=== PATIENT | female | born 1970 | race Caucasian/White ===

== ENCOUNTER 2018-02-26 14:22 | Emergency (ER) | payer MEDICARE, MEDICAID ==
[~2018-02-26] VITALS: Ht 165.1 cm; Wt 65.9 kg
[~2018-02-26 14:22] MED LIST: ACET325T55 PO; ACET650T2 PO; BUSP10TA11 PO; CARB15DR23 EACH EAR; CARB200T PO; DOCU100C40 PO; DULR RC; GAS X PO; MAGN800O PO; MULT-1085 PO; NEOM1OIN8 TOP; PHEN64.8 PO; [UNRECOGNIZED DRUG - OTHER] TOP; [UNRECOGNIZED DRUG - OTHER] TP
[2018-02-26] MEDS ORDERED: epiNEPHrine 1 mg/ml inj SQ STA (14:44)
[2018-02-26] MEDS ORDERED: dexamethasone sod phosphate 10mg/ml inj IM STA (14:44)
[2018-02-26] MEDS ORDERED: diphenhydrAMINE 50 mg/ml inj IM ONE (14:45)
[2018-02-26] MEDS ORDERED: famotidine 20mg tablet PO ONE (14:45)
[2018-02-26] MEDS ORDERED: EPIN0.3P8 IM (15:06)
[2018-02-26 15:36] VITALS: BP 126/77
== END 2018-02-26 15:42 | disposition home or self-care (01) ==
LOC: ER 14:22
DX: T63.441A Toxic effect of venom of bees, accidental (unintentional), initial encounter (principal); T78.49XA Other allergy, initial encounter; R06.09 Other forms of dyspnea; Z88.8 Allergy status to other drugs, medicaments and biological substances; Z79.899 Other long term (current) drug therapy; Y92.9 Unspecified place or not applicable
CPT/HCPCS: 96372; 99284; J0171; J1100; J1200

== ENCOUNTER 2018-05-23 09:25 | Emergency (ER) | payer MEDICARE, MEDICAID ==
[~2018-05-23] VITALS: Ht 165.1 cm; Wt 63.0 kg
[~2018-05-23 09:25] MED LIST changes: +EPIN0.3P8 IM
[2018-05-23 09:43] VITALS: BP 116/79
[2018-05-23] MEDS ORDERED: normal saline 1000ML IV soln IV ONE (10:05)
[2018-05-23] MEDS ORDERED: CEPH-571 PO (11:41)
[2018-05-27] MEDS ORDERED: SULF1TAB49 PO (14:40)
== END 2018-05-23 11:57 | disposition home or self-care (01) ==
LOC: ER 09:25
DX: L02.415 Cutaneous abscess of right lower limb (principal); L03.115 Cellulitis of right lower limb; F88 Other disorders of psychological development; Z88.8 Allergy status to other drugs, medicaments and biological substances; Z79.899 Other long term (current) drug therapy
CPT/HCPCS: 99283; J7030

== ENCOUNTER 2018-06-07 08:59 | Day surgery (SDC) | payer MEDICARE, MEDICAID ==
[~2018-06-07 08:59] MED LIST changes: +CEPH-571 PO
== END 2018-06-07 10:51 | disposition home or self-care (01) ==
LOC: WOUND CARE 08:59
PROVIDERS: ATTEND Surgery
DX: L97.212 Non-pressure chronic ulcer of right calf with fat layer exposed (principal); Z79.899 Other long term (current) drug therapy; Z86.69 Personal history of other diseases of the nervous system and sense organs
CPT/HCPCS: 11042; A6222; A6021; A6212

== ENCOUNTER 2018-06-16 09:30 | Outpatient (CLI) | payer MEDICARE, MEDICAID | END 2018-06-16 11:23 | disposition home or self-care (01) | LOC: EDSTATUS 09:30 → WOUND CARE 09:30 | PROVIDERS: ATTEND Surgery | DX: L97.212 Non-pressure chronic ulcer of right calf with fat layer exposed (principal); Z79.899 Other long term (current) drug therapy; Z86.69 Personal history of other diseases of the nervous system and sense organs | CPT/HCPCS: A6021; A6206; A6212; G0463 ==

== ENCOUNTER 2018-06-23 09:51 | Day surgery (SDC) | payer MEDICARE, MEDICAID | END 2018-06-23 10:37 | disposition home or self-care (01) | LOC: WOUND CARE 09:51 | PROVIDERS: ATTEND Surgery | DX: L97.212 Non-pressure chronic ulcer of right calf with fat layer exposed (principal); Z79.899 Other long term (current) drug therapy; Z86.69 Personal history of other diseases of the nervous system and sense organs | CPT/HCPCS: 97597; A6021; A6196; A6206 ==

== ENCOUNTER 2018-06-30 09:19 | Day surgery (SDC) | payer MEDICARE, MEDICAID ==
--- NOTE | 2018-06-30 11:30 | NUR ---
Patient arrived via wheelchair accompanied by her caregiver from [facility] and was admitted to outpatient wound care for physician visit with Yuri Ibrahim MD. Dressing removed, wound cleansed and lidocaine applied per order. Patient assessed for changes in conditions, medications and medical history. 1040 - Dr. Ibrahim at bedside accompanied by RN. Wound assessed, time out performed by MD/RN. Wound debrided as detailed in the physician progress/procedure note. Plan of care discussed with patient. Dressings placed per MD orders. Patient instructed on the signs and symptoms of infection and to call the Wound Center if any occur or to go to the ED if we are closed: Increased pain in wound Increase in drainage from the wound Redness in the skin surrounding the wound Bleeding from the wound Temperature of 101 or greater Patient instructed that the weight of their body puts a large amount of pressure on their wounds. This pressure keeps the new tissue from growing and inhibits new blood vessels from forming. Explained that, if they continue to bear weight on a body part that has a wound, the time it takes to heal the wound increases, the wound may get worse or the wound may not heal at all. Patient's caregiver verbalized understanding of all discharge instructions and plan of care and patient exited via wheelchair accompanied by caregiver out to [facility] in stable condition with no sign or symptom of distress at time of discharge.
== END 2018-06-30 11:09 | disposition home or self-care (01) ==
LOC: WOUND CARE 09:19
PROVIDERS: ATTEND Surgery
DX: T81.89XD Other complications of procedures, not elsewhere classified, subsequent encounter (principal); L97.212 Non-pressure chronic ulcer of right calf with fat layer exposed; Z79.899 Other long term (current) drug therapy; Z86.69 Personal history of other diseases of the nervous system and sense organs; Y83.8 Other surgical procedures as the cause of abnormal reaction of the patient, or of later complication, without mention of misadventure at the time of the procedure
CPT/HCPCS: 97597; A6212

== ENCOUNTER 2018-07-12 09:05 | Day surgery (SDC) | payer MEDICARE, MEDICAID ==
[~2018-07-12 09:05] MED LIST changes: -CEPH-571 PO
[2018-07-12] MEDS ORDERED: LIDOcaine/PRILOcaine 5gm cream TP ONE (09:53)
--- NOTE | 2018-07-12 11:00 | NUR ---
Patient arrived via wheelchair accompanied by caregiver Luisa from [facility] and was admitted to outpatient wound care for physician visit with Yuri Ibrahim MD. Dressing removed, wound cleansed and Emla cream applied per order. Patient assessed for changes in conditions, medications and medical history. 1010 - Dr. Ibrahim at bedside accompanied by RN. Wound assessed, time out performed by MD/RN. Wound debrided as detailed in the physician progress/procedure note. Plan of care discussed with patient. Dressings placed per MD orders. Patient instructed on the signs and symptoms of infection and to call the Wound Center if any occur or to go to the ED if we are closed: Increased pain in wound Increase in drainage from the wound Redness in the skin surrounding the wound Bleeding from the wound Temperature of 101 or greater Patient instructed that the weight of their body puts a large amount of pressure on their wounds. This pressure keeps the new tissue from growing and inhibits new blood vessels from forming. Explained that, if they continue to bear weight on a body part that has a wound, the time it takes to heal the wound increases, the wound may get worse or the wound may not heal at all. Patient's caregiver verbalized understanding of all discharge instructions and plan of care and drove patient via wheelchair out to [facility] in stable condition with no sign or symptom of distress at time of discharge.
[2018-07-12] MEDS ORDERED: SULF1TAB48 PO (13:46)
== END 2018-07-12 10:29 | disposition home or self-care (01) ==
LOC: WOUND CARE 09:05
PROVIDERS: ATTEND Surgery
DX: L97.112 Non-pressure chronic ulcer of right thigh with fat layer exposed (principal); K21.9 Gastro-esophageal reflux disease without esophagitis; Z79.899 Other long term (current) drug therapy; Z86.69 Personal history of other diseases of the nervous system and sense organs
CPT/HCPCS: A6021; A6206; A6212

== ENCOUNTER 2018-08-01 08:55 | Day surgery (SDC) | payer MEDICARE, MEDICAID ==
[~2018-08-01 08:55] MED LIST changes: +SULF1TAB48 PO
[2018-08-01] MEDS ORDERED: LIDOcaine/PRILOcaine 5gm cream TP ONE (09:58)
--- NOTE | 2018-08-01 11:00 | NUR ---
Patient arrived via wheelchair accompanied by caregiver from [facility] and was admitted to outpatient wound care for physician visit with Yuri Ibrahim MD. Patient is combative with caregiver and refusing to get out of wheelchair for her caregiver; another caregiver is phoned and arrives and is able to calm the patient so that patient could be transferred to [facility] with assist for commencement of wound care. Dressing removed, wound cleansed and Emla cream applied per order. Patient assessed for changes in conditions, medications and medical history. 1025 - Dr. Ibrahim at bedside accompanied by RN. Wound assessed, time out performed by MD/RN. Wound debrided as detailed in the physician progress/procedure note. Plan of care discussed with patient. Dressings placed per MD orders. Patient instructed on the signs and symptoms of infection and to call the Wound Center if any occur or to go to the ED if we are closed: Increased pain in wound Increase in drainage from the wound Redness in the skin surrounding the wound Bleeding from the wound Temperature of 101 or greater Patient instructed that the weight of their body puts a large amount of pressure on their wounds. This pressure keeps the new tissue from growing and inhibits new blood vessels from forming. Explained that, if they continue to bear weight on a body part that has a wound, the time it takes to heal the wound increases, the wound may get worse or the wound may not heal at all. Patient's caregiver verbalized understanding of all discharge instructions and plan of care and drove patient via wheelchair out to [facility] in stable condition with no sign or symptom of distress at time of discharge.
== END 2018-08-01 10:38 | disposition home or self-care (01) ==
LOC: WOUND CARE 08:55
PROVIDERS: ATTEND Surgery
DX: L97.112 Non-pressure chronic ulcer of right thigh with fat layer exposed (principal); K21.9 Gastro-esophageal reflux disease without esophagitis; Z79.899 Other long term (current) drug therapy; Z86.69 Personal history of other diseases of the nervous system and sense organs
CPT/HCPCS: 97597; A6021; A6206; A6212

== ENCOUNTER 2018-08-09 09:00 | Day surgery (SDC) | payer MEDICARE, MEDICAID ==
--- NOTE | 2018-08-09 12:37 | NUR ---
Patient ambulated independently from [facility] and was admitted to outpatient wound care for physician visit. Dressings removed, wound cleansed. Patient assessment completed with review of patient's medical history and current medications. 1010-Dr. Ibrahim at bedside accompanied by RN. Wound assessed, time-out performed by MD/RN. Wound debrided as detailed in the physician progress/procedure note. Plan of care discussed with patient. Dressings placed per MD orders. Patient instructed on the signs and symptoms of infection and to call the Wound Center if any occur or to go to the ED if we are closed: Increased pain in the wound Increase in drainage from the wound Redness in the skin surrounding the wound Bleeding from the wound Temperature of 101F or greater Patient instructed that the weight of their body puts a large amount of pressure on their wounds. This pressure keeps the new tissue from growing and inhibits new blood vessels from forming. Explained that, if they continue to bear weight on a body part that has a wound, the time it takes to heal the wound increases, the wound may get worse, or the wound may not heal at all. Patient verbalized understanding of all discharge instructions and plan of care. Patient ambulated independently out to [facility] in stable condition with no signs or symptoms of distress at time of discharge.
== END 2018-08-09 10:22 | disposition home or self-care (01) ==
LOC: WOUND CARE 09:00
PROVIDERS: ATTEND Surgery
DX: L97.112 Non-pressure chronic ulcer of right thigh with fat layer exposed (principal); K21.9 Gastro-esophageal reflux disease without esophagitis; Z79.899 Other long term (current) drug therapy; Z86.69 Personal history of other diseases of the nervous system and sense organs
CPT/HCPCS: 97597; A6021; A6212

== ENCOUNTER 2018-08-24 09:36 | Day surgery (SDC) | payer MEDICARE, MEDICAID ==
[~2018-08-24 09:36] MED LIST changes: +BACDS PO; +CEPH500C5 PO
[2018-08-24] MEDS ORDERED: LIDOcaine/PRILOcaine 5gm cream TP ONE (10:29)
--- NOTE | 2018-08-24 11:00 | NUR ---
Patient arrived via wheelchair accompanied by caregiver Maida from [facility] and was admitted to outpatient wound care for physician visit with Yuri Ibrahim MD. Dressing removed, wound cleansed. Patient assessed for changes in conditions, medications and medical history. 1025 - Dr. Ibrahim at bedside accompanied by RN. Wound assessed, time out performed by MD/RN. Wound debrided as detailed in the physician progress/procedure note. Plan of care discussed with patient. Dressings placed per MD orders. Patient instructed on the signs and symptoms of infection and to call the Wound Center if any occur or to go to the ED if we are closed: Increased pain in wound Increase in drainage from the wound Redness in the skin surrounding the wound Bleeding from the wound Temperature of 101 or greater Patient instructed that the weight of their body puts a large amount of pressure on their wounds. This pressure keeps the new tissue from growing and inhibits new blood vessels from forming. Explained that, if they continue to bear weight on a body part that has a wound, the time it takes to heal the wound increases, the wound may get worse or the wound may not heal at all. Patient's caregiver Maida verbalized understanding of all discharge instructions and plan of care and patient is taken via wheelchair by Maida out to [facility] in stable condition with no sign or symptom of distress at time of discharge.
[2018-08-24] MEDS ORDERED: CEPH-572 PO (15:24)
== END 2018-08-24 11:00 | disposition home or self-care (01) ==
LOC: WOUND CARE 09:36
PROVIDERS: ATTEND Surgery
DX: L97.222 Non-pressure chronic ulcer of left calf with fat layer exposed (principal); K21.9 Gastro-esophageal reflux disease without esophagitis; G80.9 Cerebral palsy, unspecified; Z86.69 Personal history of other diseases of the nervous system and sense organs; Z79.899 Other long term (current) drug therapy
CPT/HCPCS: 97597; A6021; A6206; A6212

== ENCOUNTER 2018-08-31 09:16 | Day surgery (SDC) | payer MEDICARE, MEDICAID ==
[~2018-08-31 09:16] MED LIST changes: +CEPH-572 PO; -CEPH500C5 PO
[2018-08-31] MEDS ORDERED: LIDOcaine/PRILOcaine 5gm cream TP ONE (09:53)
--- NOTE | 2018-08-31 10:30 | NUR ---
Patient arrived via wheelchair accompanied by caregiver from [facility] and was admitted to outpatient wound care for physician visit with Yuri Ibrahim MD. Dressing removed, wound cleansed and Emla cream applied per order. Patient assessed for changes in conditions, medications and medical history. 1015 - Dr. Ibrahim at bedside accompanied by RN. Wound assessed, time out performed by MD/RN. Wound debrided as detailed in the physician progress/procedure note. Plan of care discussed with patient. Dressings placed per MD orders. Patient instructed on the signs and symptoms of infection and to call the Wound Center if any occur or to go to the ED if we are closed: Increased pain in wound Increase in drainage from the wound Redness in the skin surrounding the wound Bleeding from the wound Temperature of 101 or greater Patient instructed that the weight of their body puts a large amount of pressure on their wounds. This pressure keeps the new tissue from growing and inhibits new blood vessels from forming. Explained that, if they continue to bear weight on a body part that has a wound, the time it takes to heal the wound increases, the wound may get worse or the wound may not heal at all. Patient's caregivers verbalized understanding of all discharge instructions and plan of care and ambulated independently out to [facility] in stable condition with no sign or symptom of distress at time of discharge.
== END 2018-08-31 10:50 | disposition home or self-care (01) ==
LOC: WOUND CARE 09:16
PROVIDERS: ATTEND Surgery
DX: L97.222 Non-pressure chronic ulcer of left calf with fat layer exposed (principal); S71.101A Unspecified open wound, right thigh, initial encounter; K21.9 Gastro-esophageal reflux disease without esophagitis; G80.9 Cerebral palsy, unspecified; Z86.69 Personal history of other diseases of the nervous system and sense organs; Z79.899 Other long term (current) drug therapy; X58.XXXA Exposure to other specified factors, initial encounter; Y93.89 Activity, other specified; Y92.89 Other specified places as the place of occurrence of the external cause; Y99.8 Other external cause status
CPT/HCPCS: A6021; A6212

== ENCOUNTER 2018-09-04 10:39 | Day surgery (SDC) | payer MEDICARE, MEDICAID ==
[~2018-09-04 10:39] MED LIST changes: -BACDS PO; -CEPH-572 PO
[2018-09-04] MEDS ORDERED: LIDOcaine/PRILOcaine 5gm cream TP ONE (12:09)
--- NOTE | 2018-09-04 12:50 | NUR ---
Patient arrived via wheelchair accompanied by caregiver from [facility] and was admitted to outpatient wound care for physician visit with Yuri Ibrahim MD. Dressing removed, wound cleansed and Emla cream applied per order. Patient assessed for changes in conditions, medications and medical history. 1215 - Dr. Ibrahim at bedside accompanied by RN. Wound assessed, time out performed by MD/RN. Wound debrided as detailed in the physician progress/procedure note. Plan of care discussed with patient. Dressings placed per MD orders. Patient instructed on the signs and symptoms of infection and to call the Wound Center if any occur or to go to the ED if we are closed: Increased pain in wound Increase in drainage from the wound Redness in the skin surrounding the wound Bleeding from the wound Temperature of 101 or greater Patient instructed that the weight of their body puts a large amount of pressure on their wounds. This pressure keeps the new tissue from growing and inhibits new blood vessels from forming. Explained that, if they continue to bear weight on a body part that has a wound, the time it takes to heal the wound increases, the wound may get worse or the wound may not heal at all. Patient verbalized understanding of all discharge instructions and plan of care and exited via wheelchair accompanied by caregiver out to [facility] in stable condition with no sign or symptom of distress at time of discharge.
== END 2018-09-04 12:42 | disposition home or self-care (01) ==
LOC: WOUND CARE 10:39
PROVIDERS: ATTEND Surgery
DX: L97.222 Non-pressure chronic ulcer of left calf with fat layer exposed (principal); K21.9 Gastro-esophageal reflux disease without esophagitis; G80.9 Cerebral palsy, unspecified; Z86.69 Personal history of other diseases of the nervous system and sense organs; Z79.899 Other long term (current) drug therapy
CPT/HCPCS: A6021; A6206; A6212

== ENCOUNTER 2018-09-14 09:09 | Day surgery (SDC) | payer MEDICARE, MEDICAID ==
[~2018-09-14 09:09] MED LIST changes: -SULF1TAB48 PO
[2018-09-14] MEDS ORDERED: LIDOcaine/PRILOcaine 5gm cream TP ONE (10:13)
--- NOTE | 2018-09-14 13:59 | NUR ---
Patient arrived safely into [employer] wheelchair, accompanied by caregiver. Patient admitted to outpatient wound care for physician visit with Yuri Ibrahim MD. Dressing removed, wound cleansed and Emla cream applied per order. Patient assessed for changes in conditions, medications and medical history. Dr. Ibrahim at bedside accompanied by RN. Wound assessed, time out performed by MD/RN. Wound debrided as detailed in the physician progress/procedure note. Plan of care discussed with patient. Dressings placed per MD orders. Patient instructed on the signs and symptoms of infection and to call the Wound Center if any occur or to go to the ED if we are closed: Increased pain in wound Increase in drainage from the wound Redness in the skin surrounding the wound Bleeding from the wound Temperature of 101 or greater Patient instructed that the weight of their body puts a large amount of pressure on their wounds. This pressure keeps the new tissue from growing and inhibits new blood vessels from forming. Explained that, if they continue to bear weight on a body part that has a wound, the time it takes to heal the wound increases, the wound may get worse or the wound may not heal at all. Patient verbalized understanding of all discharge instructions and plan of care. Patient left in stable condition with no sign or symptom of distress at time of discharge. Addendum: 09/14/18 at 1407 by Katty Nolasco RN Amended: Links added.
== END 2018-09-14 10:55 | disposition home or self-care (01) ==
LOC: WOUND CARE 09:09
PROVIDERS: ATTEND Surgery
DX: L97.222 Non-pressure chronic ulcer of left calf with fat layer exposed (principal); K21.9 Gastro-esophageal reflux disease without esophagitis; G80.9 Cerebral palsy, unspecified; Z86.69 Personal history of other diseases of the nervous system and sense organs; Z79.899 Other long term (current) drug therapy
CPT/HCPCS: 97597; A6021; A6212; A6446

== ENCOUNTER 2018-09-21 09:35 | Day surgery (SDC) | payer MEDICARE, MEDICAID ==
[2018-09-21] MEDS ORDERED: LIDOcaine/PRILOcaine 5gm cream TP ONE (09:48)
--- NOTE | 2018-09-21 14:38 | NUR ---
Patient arrived via wheelchair accompanied by caregiver. Patient was admitted to outpatient wound care for physician visit with Yuri Ibrahim MD. Dressing removed, wound cleansed and lidocaine applied per order. Patient assessed for changes in conditions, medications and medical history. Dr. Ibrahim at bedside accompanied by RN. Wound assessed, time out performed by MD/RN. Wound debrided as detailed in the physician progress/procedure note. Plan of care discussed with medicare contact specialist. Dressings placed per MD orders. residential sales associate instructed on the signs and symptoms of infection and to call the Wound Center if any occur or to go to the ED if we are closed: Increased pain in wound Increase in drainage from the wound Redness in the skin surrounding the wound Bleeding from the wound Temperature of 101 or greater residential sales associate instructed that the weight of patients body puts a large amount of pressure on their wounds. This pressure keeps the new tissue from growing and inhibits new blood vessels from forming. Explained that, if they continue to bear weight on a body part that has a wound, the time it takes to heal the wound increases, the wound may get worse or the wound may not heal at all. residential sales associate verbalized understanding of all discharge instructions and plan of care. Patient left in stable condition with no sign or symptom of distress at time of discharge. Addendum: 09/21/18 at 1443 by Katty Nolasco RN Amended: Links added.
== END 2018-09-21 11:27 | disposition home or self-care (01) ==
LOC: WOUND CARE 09:35
PROVIDERS: ATTEND Surgery
DX: E11.622 Type 2 diabetes mellitus with other skin ulcer (principal); L97.222 Non-pressure chronic ulcer of left calf with fat layer exposed; E11.65 Type 2 diabetes mellitus with hyperglycemia; G82.50 Quadriplegia, unspecified; E78.5 Hyperlipidemia, unspecified; E78.00 Pure hypercholesterolemia, unspecified; K21.9 Gastro-esophageal reflux disease without esophagitis; F17.200 Nicotine dependence, unspecified, uncomplicated; F41.9 Anxiety disorder, unspecified; Z79.01 Long term (current) use of anticoagulants; Z86.718 Personal history of other venous thrombosis and embolism; Z90.710 Acquired absence of both cervix and uterus; Z90.49 Acquired absence of other specified parts of digestive tract; Z79.2 Long term (current) use of antibiotics; Z79.899 Other long term (current) drug therapy
CPT/HCPCS: 97597; A6021; A6212

== ENCOUNTER 2018-09-28 09:13 | Day surgery (SDC) | payer MEDICARE, MEDICAID ==
--- NOTE | 2018-09-28 11:15 | NUR ---
Patient arrived via wheelchair accompanied by caregiver Maida from [facility] and was admitted to outpatient wound care for physician visit with Yuri Ibrahim MD. Dressing removed, wound cleansed. Patient assessed for changes in conditions, medications and medical history. 1050 - Dr. Ibrahim at bedside accompanied by RN. Wound assessed, time out performed by MD/RN. Wound debrided as detailed in the physician progress/procedure note. Plan of care discussed with patient. Dressings placed per MD orders. Patient is discharged from the wound clinic to follow up on an as needed basis. Patient instructed on the signs and symptoms of infection and to call the Wound Center if any occur or to go to the ED if we are closed: Increased pain in wound Increase in drainage from the wound Redness in the skin surrounding the wound Bleeding from the wound Temperature of 101 or greater Patient instructed that the weight of their body puts a large amount of pressure on their wounds. This pressure keeps the new tissue from growing and inhibits new blood vessels from forming. Explained that, if they continue to bear weight on a body part that has a wound, the time it takes to heal the wound increases, the wound may get worse or the wound may not heal at all. Patient's caregiver Maida verbalized understanding of all discharge instructions and plan of care patient was taken via wheelchair by Maida out to [facility] in stable condition with no sign or symptom of distress at time of discharge.
== END 2018-09-28 11:12 | disposition home or self-care (01) ==
LOC: WOUND CARE 09:13
PROVIDERS: ATTEND Surgery
DX: E11.622 Type 2 diabetes mellitus with other skin ulcer (principal); L97.222 Non-pressure chronic ulcer of left calf with fat layer exposed; E11.65 Type 2 diabetes mellitus with hyperglycemia; G82.50 Quadriplegia, unspecified; E78.5 Hyperlipidemia, unspecified; E78.00 Pure hypercholesterolemia, unspecified; K21.9 Gastro-esophageal reflux disease without esophagitis; F17.200 Nicotine dependence, unspecified, uncomplicated; F41.9 Anxiety disorder, unspecified; Z79.01 Long term (current) use of anticoagulants; Z86.718 Personal history of other venous thrombosis and embolism; Z90.710 Acquired absence of both cervix and uterus; Z90.49 Acquired absence of other specified parts of digestive tract; Z79.2 Long term (current) use of antibiotics; Z79.899 Other long term (current) drug therapy
CPT/HCPCS: 97597; A6021; A6212

== ENCOUNTER 2023-09-19 15:04 | Emergency (ER) | payer MEDICARE, MEDICAID ==
[~2023-09-19] VITALS: Ht 152.4 cm; Wt 59.1 kg
[~2023-09-19 15:04] MED LIST changes: +CARB-273 EACH EAR; -CARB15DR23 EACH EAR; +LOPE2TAB25 PO; +ONDA4TAB12 PO
[2023-09-19 18:29] LABS: ALANINE AMINOTRANSFERASE 17 U/L (12-78); ALBUMIN 3.8 G/DL (3.4-5.0); ALBUMIN/GLOBULIN RATIO 1.3 (1.1-1.5); ALKALINE PHOSPHATASE 96 IU/L (46-116); ANION GAP 16 (8-16); ASPARTATE AMINO TRANSFERASE 15 U/L (10-37); BILIRUBIN,TOTAL 0.2 MG/DL (0.1-1.0); BLOOD UREA NITROGEN 19 MG/DL (7-18); BUN/CREATININE RATIO 43.2 (10.0-20.0); CALCIUM 8.9 MG/DL (8.5-10.1); CHLORIDE 108 MMOL/L (99-107); CREATININE 0.44 MG/DL (0.40-0.90); GLUCOSE 73 MG/DL (70-104); POTASSIUM 4.2 MMOL/L (3.5-5.1); SODIUM 146 MMOL/L (135-145); TOTAL CARBON DIOXIDE 22.1 MMOL/L (24-32); TOTAL PROTEIN 6.8 G/DL (6.4-8.2); eCRCL 109 ML/MIN; eGFR > 90 ML/MIN
[2023-09-19 18:35] LABS: PRO BRAIN NATRIURETIC PEPTIDE 34 PG/ML (0-125)
[2023-09-19 22:30] LABS: BASOPHILS % (AUTO) 0.7 % (0-1); EOSINOPHILS # (AUTO) 0.2 X10'3 (0-0.9); EOSINOPHILS % (AUTO) 2.8 % (0-6); HEMATOCRIT 38.5 % (35.0-45.0); LYMPHOCYTES # (AUTO) 2.9 X10'3 (1.1-4.8); LYMPHOCYTES % (AUTO) 46.1 % (21-51); MEAN CORPUSCULAR HEMOGLOBIN 32.4 PG (27.0-31.0); MEAN CORPUSCULAR HGB CONC 33.7 g/dL (33.0-36.5); MEAN CORPUSCULAR VOLUME 96.3 FL (78-98); MEAN PLATELET VOLUME 7.6 FL (7.4-10.4); MONOCYTES # (AUTO) 0.4 X10'3 (0-0.9); MONOCYTES % (AUTO) 7.1 % (2-12); NEUTROPHILS # (AUTO) 2.7 X10'3 (1.8-7.7); NEUTROPHILS % (AUTO) 43.3 % (42-75); PLATELET COUNT 179 X10'3 (140-440); RED BLOOD COUNT 3.99 X10'6 (4.20-5.60); RED CELL DISTRIBUTION WIDTH 12.2 % (11.5-14.5); WHITE BLOOD COUNT 6.3 X10'3 (4.5-11.0)
[2023-09-20] MEDS ORDERED: CEPH-585 PO (00:32)
[2023-09-20 00:43] VITALS: BP 108/81; PULSE 72; RESP 16; TEMP 98.4; O2SAT 99
== END 2023-09-20 00:46 | disposition home or self-care (01) ==
LOC: ER 15:04
DX: R60.0 Localized edema (principal); L03.115 Cellulitis of right lower limb; Z88.8 Allergy status to other drugs, medicaments and biological substances; Z91.030 Bee allergy status; Z79.899 Other long term (current) drug therapy; Z79.1 Long term (current) use of non-steroidal anti-inflammatories (NSAID)
CPT/HCPCS: 36415; 71045; 73630; 80053; 83880; 85025; 93971; 99285